=== PATIENT | female | born 1955 | race Two or more races ===

== ENCOUNTER 2024-04-14 21:39 | Emergency (ER) | payer MEDICARE ==
[~2024-04-14] VITALS: Ht 152.4 cm; Wt 65.9 kg
[2024-04-14 22:22] VITALS: BP 140/89; PULSE 84; RESP 14; TEMP 98; O2SAT 100
[2024-04-14 23:15] LABS: BASOPHILS % (AUTO) 0.4 % (0.0-2.0); EOSINOPHILS % (AUTO) 1.5 % (1.0-6.0); HEMATOCRIT 37.1 % (36-46); HEMOGLOBIN 12.1 g/dL (12.0-16.0); LYMPHOCYTES # (AUTO) 3.2 K/uL (1.0-4.8); MEAN CORPUSCULAR HEMOGLOBIN 31.2 pg (26.0-34.0); MEAN CORPUSCULAR HGB CONC 32.6 G/dL (31.0-37.0); MEAN CORPUSCULAR VOLUME 96 fL (80-100); MONOCYTES # (AUTO) 0.5 K/uL (0.1-1.0); MONOCYTES % (AUTO) 7.3 % (2.0-9.0); NEUTROPHILS # (AUTO) 3.2 K/uL (1.8-7.7); NEUTROPHILS % (AUTO) 45.8 % (40.0-70.0); PLATELET COUNT (AUTO) 273 K/uL (150-450); RED BLOOD CELL COUNT(AUTO) 3.87 MIL/uL (4.00-5.20); RED CELL DISTRIBUTION WIDTH 13.5 % (11.5-14.5)
[2024-04-14] MEDS ORDERED: KETOROLAC TROMETHAMINE 30 MG/ML VIAL IVP ONE (23:30)
[2024-04-14 23:31] LABS: ANION GAP 11 mmol/L (8-16); CALCIUM, TOTAL 8.3 mg/dL (8.8-10.5); CARBON DIOXIDE 23 mmol/L (22-29); CHLORIDE 101 mmol/L (98-107); CREATININE 0.89 mg/dL (0.60-1.30); GLOMERULAR FILTR. RATE CALC > 60 mL/min (>60); GLUCOSE,RANDOM 138 mg/dL (70-110); POTASSIUM 3.4 mmol/L (3.5-5.1); SODIUM SERUM 135 mmol/L (136-145); UREA NITROGEN, BLOOD 16 mg/dL (7-18)
[2024-04-14 23:36] LABS: B-TYPE NATRIURETIC PEPTIDE 10 pg/mL (0-100)
[2024-04-14 23:38] LABS: TROPONIN I-HIGH SENSITIVITY Less Than 4 ng/L (<51)
[2024-04-14] MEDS: MAG HYDROX/ALUMINUM HYD/SIMETH 30 ML SUSPENSION UDCUP PO ONE (23:43)
[2024-04-14] MEDS: ONDANSETRON HCL 4 MG/2 ML VIAL IVP ONE (23:43)
[2024-04-14] MEDS: KETOROLAC TROMETHAMINE 15 MG/ML VIAL IVP ONE (23:43)
[2024-04-14] MEDS: SODIUM CHLORIDE 0.9% 1,000 ML IV ONE (23:44)
[2024-04-14 23:54] LABS: ALANINE AMINOTRANSFERASE 32 U/L (12-78); ALBUMIN 3.3 g/dL (3.4-5.0); ALKALINE PHOSPHATASE 98 U/L (46-116); ASPARTATE AMINOTRANSFERASE 20 U/L (15-37); BILIRUBIN,TOTAL 0.2 mg/dL (0.1-1.0); CREATINE KINASE, TOTAL ONLY 90 U/L (26-192)
[2024-04-15 01:01] LABS: TROPONIN I-HIGH SENSITIVITY Less Than 4 ng/L (<51)
== END 2024-04-15 01:38 | disposition home or self-care (01) ==
LOC: EMS 21:39
DX: R07.89 Other chest pain (principal); R68.84 Jaw pain
CPT/HCPCS: 99285; 96374; 71045; 96361; 96375; 80053; 82550; 82962; 83880; 84484; 85025; 36415; 93005; J1885; J2405; J7030